=== PATIENT | female | born 1985 | race Caucasian/White ===

== ENCOUNTER → 2017-04-26 | Outpatient (CLI) | payer OTHER ==
[~2017-04-26] VITALS: Ht 167.6 cm; Wt 82.0 kg
[~2017-04-26] MED LIST: PRENATAL TABLE1 EAC3 PO; TUMS500 MG PO; ZANTAC150 MG PO
[2017-04-26 09:40] VITALS: BP 131/64
== END | disposition home or self-care (01) ==
LOC: IVINF 09:00
DX: Z31.82 Encounter for Rh incompatibility status (principal); Z3A.28 28 weeks gestation of pregnancy
CPT/HCPCS: 96372; J2790

== ENCOUNTER 2017-05-23 12:19 | Emergency (ER) | payer OTHER ==
[~2017-05-23] VITALS: Ht 167.6 cm; Wt 84.5 kg
[2017-05-23 15:18] VITALS: BP 134/88
== END 2017-05-23 15:18 | disposition home or self-care (01) ==
LOC: EME 12:19
DX: S00.83XA Contusion of other part of head, initial encounter (principal); W01.0XXA Fall on same level from slipping, tripping and stumbling without subsequent striking against object, initial encounter; Y99.0 Civilian activity done for income or pay; Z33.1 Pregnant state, incidental; Z3A.32 32 weeks gestation of pregnancy
CPT/HCPCS: 99281; 99283

== ENCOUNTER 2017-06-26 18:04 | Inpatient (IN) | payer OTHER ==
[~2017-06-26] VITALS: Ht 167.6 cm; Wt 92.3 kg
[2017-06-26 18:14] VITALS: BP 142/81
[2017-06-26 18:36] LABS: BASOPHIL (%) 0.4 % (0-1); BASOPHIL COUNT 0.1 K/uL (0-0.1); EOSINOPHIL (%) 0.6 % (0-5); EOSINOPHIL COUNT 0.1 K/uL (0-0.3); HEMATOCRIT 36.3 % (36.0-46.0); HEMOGLOBIN 12.1 G/DL (11.9-15.5); LYMPHOCYTE (%) 15.8 % (15-42); LYMPHOCYTE COUNT 2.5 K/uL (1.0-2.8); MCH 29.7 PG (29.0-34.0); MCHC 33.3 G/DL (30.0-36.0); MCV 89.2 FL (83-99); MONOCYTE (%) 8.7 % (3-12); MONOCYTE COUNT 1.4 K/uL (0-0.8); NEUTROPHIL (%) 73.5 % (45-76); NEUTROPHIL COUNT 11.6 K/uL (1.8-6.4); PLATELET COUNT 235 K/uL (156-360); RBC DIS.WIDTH-CV 12.6 % (11.8-14.6); RBC DIS.WIDTH-SD 40.8 % (39-53); RED BLOOD COUNT 4.07 M/uL (3.80-5.20); WHITE BLOOD COUNT 15.8 K/uL (4.1-10.2)
[2017-06-26 20:24] LABS: APPEARANCE SL.HAZY ((CLEAR)); BILIRUBIN NEGATIVE; BLOOD NEGATIVE; COLOR YELLOW ((YELLOW)); GLUCOSE (STRIP) NEGATIVE; KETONES 5; LEUKOCYTES TRACE; NITRITE NEGATIVE; PROTEIN (STRIP) NEGATIVE; SPECIFIC GRAVITY 1.014 (1.000-1.030); UROBILINOGEN 0.2 MG/DL (0.2-1.0)
[2017-06-26 20:27] LABS: BACTERIA 1+ /HPF; EPITHELIAL CELLS RARE /HPF; MUCUS 1+ /LPF; RED BLOOD CELLS 0-5 /HPF (0-5); UCUL ADDED? NO; WHITE BLOOD CELLS 0-5 /HPF (0-5)
[2017-06-26] MEDS ORDERED: ENDOCET 5-3251 EACH PO (20:47)
[2017-06-26] MEDS ORDERED: IBUPROFEN800 MG PO (20:47)
[2017-06-26] MEDS ORDERED: BISAC-EVAC10 MG PR (20:47)
[2017-06-26 20:54] VITALS: BP 139/85
[2017-06-26 23:31] VITALS: BP 142/77
[2017-06-27] VITALS (9 sets, daily range): BP systolic 102–143; BP diastolic 59–89
[2017-06-27 07:42] LABS: BASOPHIL (%) 0.2 % (0-1); EOSINOPHIL (%) 0 % (0-5); HEMOGLOBIN 10.8 G/DL (11.9-15.5); IMMATURE GRANULOCYTE (%) 0.8 % (0.0-0.7); LYMPHOCYTE (%) 8.4 % (15-42); LYMPHOCYTE COUNT 1.5 K/uL (1.0-2.8); MCH 29.6 PG (29.0-34.0); MCHC 32.7 G/DL (30.0-36.0); MCV 90.4 FL (83-99); MONOCYTE (%) 6.3 % (3-12); MONOCYTE COUNT 1.1 K/uL (0-0.8); NEUTROPHIL (%) 84.3 % (45-76); NEUTROPHIL COUNT 14.9 K/uL (1.8-6.4); PLATELET COUNT 198 K/uL (156-360); RBC DIS.WIDTH-CV 12.5 % (11.8-14.6); RBC DIS.WIDTH-SD 41.1 % (39-53); RED BLOOD COUNT 3.65 M/uL (3.80-5.20); WHITE BLOOD COUNT 17.7 K/uL (4.1-10.2)
[2017-06-28 02:29] VITALS: BP 110/62
[2017-06-28 07:21] VITALS: BP 124/70
[2017-06-28 11:21] VITALS: BP 102/59
[2017-06-28 14:33] VITALS: BP 106/57
[2017-06-29 08:07] VITALS: BP 128/67
== END 2017-06-29 12:45 | disposition home or self-care (01) | DRG 765 ==
LOC: LDRP-OP → 2WEST 18:06 → LDRP-OP 08-17 08:06
PROVIDERS: Midwife; Obstetrics & Gynecology Gynecology
PROC: 10D00Z1 Extraction of Products of Conception, Low, Open Approach (ICD-10-PCS; principal; 2017-06-26)
DX: O41.03X1 Oligohydramnios, third trimester, fetus 1 (principal); O60.14X1 Preterm labor third trimester with preterm delivery third trimester, fetus 1; O23.43 Unspecified infection of urinary tract in pregnancy, third trimester; F33.9 Major depressive disorder, recurrent, unspecified; Z3A.36 36 weeks gestation of pregnancy; Z37.0 Single live birth; O36.8131 Decreased fetal movements, third trimester, fetus 1; O32.1XX1 Maternal care for breech presentation, fetus 1; O34.03 Maternal care for unspecified congenital malformation of uterus, third trimester; Q51.4 Unicornate uterus; O99.344 Other mental disorders complicating childbirth
CPT/HCPCS: 81003; 83030; 85025; 86850; 86870; 86900; 86901; 86905; 86920; 87086; 88307; J1100; J2274; J2405; J2765; J2790; J7120